=== PATIENT | female | born 1975 | race Caucasian/White ===

== ENCOUNTER 2017-03-17 17:25 | Inpatient (IN) ==
[2017-03-17] MEDS ORDERED: METOCLOPRAMIDE 10 MG/2 ML VIAL IV STA (18:19)
[2017-03-17] MEDS ORDERED: HYDROmorphone 2 MG/1 ML VIAL IV STA (18:19)
[2017-03-17] MEDS ORDERED: ONDANSETRON 4 MG/2 ML VIAL IV STA (18:19)
[2017-03-17] MEDS ORDERED: SODIUM CHLORIDE 0.9% 1,000 ML IV STA (18:19)
[2017-03-17] MEDS ORDERED: DICYCLOMINE 20 MG/2 ML AMP IM ONE ×2 (18:19→18:39)
--- NOTE | 2017-03-17 18:25 | Emergency Department Note ---
Arrival - Arrival Chief Complaint: Abdominal / Flank Pain Stated Complaint: lower back pain and stomach ache ED Nursing Triage Note: Pt states that after picking up something heavy yesterday that the known hernia that she has is moving in her stomach - pt states that she is out of her meds that she has not been able to go to the doctor - pt states that she did have this hernia repaired x 3 years ago Mode of Arrival: Ambulatory Limitations: No Limitations Source: Patient Time Seen by Provider: 03/17/17 18:19 - History of Present Illness HPI Narrative: This 41-year-old white female presents with 24 hours of nausea, vomiting, and diarrhea associated with severe abdominal cramps. During process of the interview she was in significant pain early on the gurney complaining of severe abdominal cramping. She describes this pain diffuse and gives the sensation of moving about. She has history both of a hernia repair 3 years ago of the umbilicus as well as a small bowel obstruction prior to that. She denies any chills or fever with this episode and presents in mild distress. Onset (ago): hour(s) (Patient presents 24 hours post onset of symptoms) Date of Last Menstrual Period: december 31 Allergies/Adverse Reactions: Allergies Allergy/AdvReac Type Severity Reaction Status Date / Time No Known Allergies Allergy Verified 10/16/14 11:26 Home Medications: Home Medications Medication Instructions Recorded Confirmed Type cloNIDine TAB [Catapres Tab] 0.1 mg PO BID #60 tablet 03/30/16 05/01/16 Rx metFORMIN [Glucophage] 500 mg PO BID W/MEALS #60 tablet 03/30/16 05/01/16 Rx Gabapentin 300 mg PO TID 05/01/16 05/01/16 History Ibuprofen Tab [Motrin Tab] 800 mg PO TID 05/01/16 05/01/16 History Loratadine Tab [Claritin Tab] 10 mg PO DAILY 05/01/16 05/01/16 History PARoxetine [Paxil] 20 mg PO DAILY 05/01/16 05/01/16 History guaiFENesin [Guaifenesin] 400 mg PO DAILY 05/01/16 05/01/16 History hydroCHLOROthiazide 50 mg PO DAILY 05/01/16 05/01/16 History [Hydrochlorothiazide] Acetaminophen Tab [Tylenol Tab] 325 mg PO Q4H PRN #0 tablet 05/02/16 Rx Albuterol Neb [Proventil Neb] 2.5 mg RESP TX RT Q6H PRN #0 05/02/16 Rx nebulization solution Chlorhexidine 0.12% Oral Rinse 15 ml SWISH/SPIT BID #10 bottle 05/02/16 Rx [Peridex] Clindamycin Cap [Cleocin Cap] 300 mg PO QID 10 Days 05/02/16 Rx HYDROcodone/ACETAMIN 5-325 [[place] 1 tablet PO Q4H PRN #20 tablet 05/02/16 Rx 5-325] Review of System - Review of System 12 point system: reviewed and no additional remarkable complaints except as stated - Review of System Constitutional: Present: as per HPI Gastrointestinal: Present: as per HPI Medical,Surgical,& Family Hx - Medical History Cardio: History of: CHF, Hypertension No history of: CAD Endocrine: History of: Diabetes Mellitus (IDDM) Respiratory: History of: Asthma Gastrointestinal: History of: Bowel Obstruction Reproductive: No history of: Ectopic , Complication Other: History of: Miscellaneous Medical Problems (prev wound dehisence) - Surgical History Thoracic Surgeries: Patient denies;: Organ Transplant Neurologic Surgeries: Patient denies: Neurologic Surgery HEENT Surgeries: Patient denies: Eye Surgery, Thyroid Surgery, Tonsilectomy & Adenoidectomy Abdominal Surgeries: Surgical HX of: Abdominal Surgery (hernia repair) Reproductive Surgeries: Surgical HX of;: Section, Tubal Ligation Patient denies;: Genitourinary Surgery - Family History Family History: Reports;: Family Cancer (colon- multiple family members), Family Diabetes, Family Heart Disease, Family Hypertension - Social History Smoking Status: Current every day smoker Frequency of Alcohol Use: None Type of Drug Use: None Exam Physical Examination: GENERAL: Morbidly obese white female groaning on the gurney. HEENT: Normocephalic. No trauma. Moist mucous membranes. EOMI. PERRLA. ENT NML NECK: Supple. No adenopathy. CARDIAC: Regular. No murmurs. Heart rate 100 CHEST: Clear to auscultation. No respiratory distress. O2 sat 98% ABDOMEN: Firm but nontender unless cramping present with hypoactive bowel sounds. EXTREMITIES: No trauma. Normal ROM. No pedal edema. SKIN: No diaphoresis. No rash. NEURO: Alert. Neuro intact no focal deficits. Vital Signs: Vital Signs Temperature 98.1 F 03/17/17 17:51 Pulse Rate 115 H 03/17/17 18:55 Respiratory Rate 20 03/17/17 18:55 Blood Pressure 119/73 03/17/17 18:55 O2 Sat by Pulse Oximetry 98 03/17/17 18:55 Course - Reevaluation(s) Reevaluation #1: Discussed with patient the fact that she had symptomatic gallstones as well as a urinary tract infection. - Consultations Consultation #1: Discussed with Dr. Ortiz who will admit the patient for further evaluation treatment. Results - Labs CBC & BMP: 03/17/17 18:38 03/17/17 18:38 Labs: I have reviewed the lab and noted the elevated blood sugar, lactic acid, and evidence of infected urine. - Diagnostic Findings Procedure: CT Abdomen and Pelvis: image reviewed by me, report reviewed by me ( Multiple gallstones and fatty liver) Disposition Clinical Impression: Cholelithiasis, Cystitis Case discussed with: patient, patient's family Disposition: Still a Patient Condition: Stable Time of Disposition: 22:17
[2017-03-17] MEDS ORDERED: METOCLOPRAMIDE 10 MG/2 ML VIAL ONE (18:38)
[2017-03-17] MEDS ORDERED: ONDANSETRON 4 MG/2 ML VIAL ONE (18:38)
[2017-03-17] MEDS ORDERED: HYDROmorphone 2 MG/1 ML VIAL ONE (18:39)
--- NOTE | 2017-03-17 18:48 | EKG Report ---
Stationary ECG Study [facility] ER Test Date: 03/17/2017 6:47:14 PM Pat Name: MIRANDA AGUDELO Department: Room: 344 Gender: F Car Mover: : 1975 Requested by: Malcom White Order Number: [id number] Reading MD: KEIRA BRUCE Intervals [place] Rate: 109 P: 56 NM: 115 QRS: 70 QRSD: 90 T: -7 QT: 312 QTc: 376 Interpretive Statements SINUS TACHYCARDIA WITH SHORT NM INTERVAL LOW QRS VOLTAGE IN PRECORDIAL LEADS ABNORMAL QRS-T ANGLE Electronically Signed On 03-18-17 11:20:39 CDT by KEIRA BRUCE [email or web address]
[2017-03-17 18:49] LABS: Basophils % 0.3 % (0.0-0.8); Eosinophils # 0.3 10*3/uL (0.0-0.87); Eosinophils % 2.2 % (0.00-10.9); Hematocrit 46.4 VOL% (35.7-47.0); Hemoglobin 15.6 GM/DL (12.0-16.0); Immature Granulocytes % 0.4 %; Immature Granulocytes Absolute 0.05 #; Lymphocytes # 2.8 10*3/uL (1.4-4.0); Lymphocytes % 24.1 % (21.3-54.2); Mean Corpuscular HGB Conc 33.6 GM/DL (32-36); Mean Corpuscular Hemoglobin 32 PG (27-34); Mean Corpuscular Volume 96.3 FL (87-102); Mean Platelet Volume 9.5 FL (9.6-12.0); Monocytes # 0.8 10*3/uL (0.11-0.8); Monocytes % 6.9 % (1.7-12.7); Neutrophils # 7.6 10*3/uL (1.4-7.4); Neutrophils % 66.1 % (38.7-73.9); Platelet Count 244 T/CUMM (130-400); Red Blood Count 4.82 MC/CUMM (3.8-5.5); White Blood Count 11.4 T/CUMM (4-12)
[2017-03-17 19:10] LABS: Alanine Aminotransferase 27 U/L (13-56); Albumin 3.2 G/DL (3.4-5.0); Alkaline Phosphatase 102 U/L (45-117); Amylase 108 U/L (25-115); Aspartate Amino Transferase 15 U/L (0-37); Bilirubin,Total < 0.39 MG/DL (0.2-1.0); Blood Urea Nitrogen 6 MG/DL (7-18); Calcium 9.4 MG/DL (8.5-10.1); Glucose 166 MG/DL (74-106); Lactic Acid 2.2 MMOL/L (0.4-2.0); Osmolality,Calculated 269.2 MOS/KG (273-304); Potassium 4.2 MMOL/L (3.5-5.1); Sodium 134 MMOL/L (136-145); Total Protein 7.1 G/DL (6.4-8.3); Troponin I Only < 0.015 NG/ML (0.00-0.045)
[2017-03-17 19:24] LABS: Apearance,Urine CLOUDY (Clear); Bacteria,Urine Many /HPF (Few); Bilirubin,Urine Negative (Negative); Blood, Urine Moderate mg/dL (Negative); Glucose,Urine (UA) Negative (Negative); Ketones,Urine Negative (Negative); Mucus,Urine Occasional /LPF (Occasional); Nitrite,Urine Negative (Negative); Protein,Urine 30 MG/DL; RBC,Urine 19 /HPF (0-4); Squamous Epithelial Cell,Urine Moderate /HPF (0-10); Urine Color Yellow (Yellow); Urine Specific Gravity 1.009 (1.001-1.035); Urine Urobilinogen < 2.0 EU/DL (0.2-1.0); WBC,Urine 43 /HPF (0-6)
[2017-03-17] MEDS ORDERED: LEVOFLOXACIN INJ 750 MG in PREMIX 1 EACH IV STA (19:39)
[2017-03-17] MEDS ORDERED: LEVOFLOXACIN INJ 150 ML IV ONE (19:46)
--- NOTE | 2017-03-17 20:46 | CT Report ---
CT of the abdomen and pelvis with intravenous contrast. Oral contrast was also administered. Axial images were obtained with sagittal and coronal reconstructions. 100 cc Omni 350. Indication: Abdominal pain. Distention. Comparison is made to a previous exam of November 27, 2012. The heart is normal in size. The lung bases are clear. The liver is enlarged with a length of 25.2 cm. There is marked fatty infiltration of the liver. No focal liver lesions are identified. There is no intrahepatic biliary ductal dilatation. There are multiple gallstones present, the largest one measures 2.5 cm. There is no biliary ductal dilatation. There is no splenic enlargement. There is no pancreatic enlargement. The pancreatic duct is not dilated. There is no adrenal enlargement. The kidneys are normal in size, location, and contour, without hydronephrosis. There are multiple hypodensities within the kidneys which have increased in size since the 2012 exam. Note that these cannot be completely characterized due to decreased resolution due to the patient's body habitus. There is no free air or free fluid present within the peritoneal cavity. The stomach is not dilated. The small intestine is not dilated. There is no evidence of small bowel obstruction. The terminal ileum presents a normal appearance. The appendix presents a normal appearance. The colon is not dilated. There is no colonic wall thickening. There is an umbilical hernia which contains fat. Postsurgical changes noted at the lower abdominal wall. There is a small amount of air within the urinary bladder. The urinary bladder wall is not thickened. There is a small amount of calcification within the left ovary. The uterus is normal in size. The ovaries are normal in size. There is no free air present within the peritoneal cavity. There is no free fluid present within the peritoneal cavity. The osseous structures are unremarkable. Impression: 1. Very enlarged there is fatty liver. 2. Multiple renal hypodensities which have increased in size. Because of the decreased resolution of this exam because of the body habitus, these cannot be further characterized. 3. Cholelithiasis including a 2.5 cm stone. 4. No evidence of small bowel obstruction. 5. Umbilical hernia containing only fat. 6. Nonspecific calcification involving the left ovary. 7. Air in the urinary bladder. The patient has not been recently catheterized, infection or fistula must be considered. The CT exam was performed using one or more of the following dose reduction techniques: Automated exposure control, adjustment of the mA and/or kV according to patient size, or use of iterative reconstruction technique. PROCEDURE INTERPRETED AT [facility] DEPARTMENT OF RADIOLOGY Final Report Signed by: Dr. Larissa Manuel
[2017-03-17] MEDS ORDERED: DEXTROSE 50% 25 GM/50 ML SYRINGE IV PRN (22:20)
[2017-03-17] MEDS ORDERED: hydrALAZINE 20 MG/1 ML VIAL IV PRN (22:20)
[2017-03-17] MEDS ORDERED: GLUCAGON 1 MG VIAL IM PRN (22:20)
[2017-03-17] MEDS ORDERED: ONDANSETRON 4 MG/2 ML VIAL IV PRN (22:20)
[2017-03-18] MEDS: LACTATED RINGERS 1,000 ML IV SCH ×3 (00:14→23:16)
[2017-03-18] MEDS: INSULIN REGULAR 100 UNIT/ML SUBCUT SCH ×4 (01:17→18:32)
[2017-03-18] MEDS: HYDROmorphone 2 MG/1 ML VIAL IV PRN ×3 (01:21→17:14)
--- NOTE | 2017-03-18 08:57 | EKG Report ---
Stationary ECG Study [facility] Test Date: 03/18/2017 8:56:35 AM Pat Name: MIRANDA AGUDELO Department: Room: 344 Gender: F Camp Manager: NEISHA : 1975 Requested by: Malcom White Order Number: [id number] Jean Carlos MD: KEIRA BRUCE Intervals [place] Rate: 92 P: 69 VT: 128 QRS: 72 QRSD: 90 T: 37 QT: 338 QTc: 387 Interpretive Statements SINUS RHYTHM Electronically Signed On 03-18-17 11:23:10 CDT by KEIRA BRUCE [email or web address]
--- NOTE | 2017-03-18 11:38 | General Surg History&Physical ---
Assessment and Plan (1) Urinary tract infection Status: Acute Assessment and plan: I believe this is the cause of the patient's abdominal pain. We will treat this with antibiotics. The air in the bladder is from recent instrumentation per the patient. We will continue to follow her clinically and her response to her treatment of urinary tract infection Current Visit: Yes (2) Umbilical hernia Status: Acute Assessment and plan: I believe this could also be contributing to the patient's pain. She had a recent large hernia repair with mesh and this is an incisional umbilical hernia. It is only containing fat and I would not recommend intervening on the right now. Current Visit: Yes (3) Cholelithiasis Status: Acute Assessment and plan: I believe this is asymptomatic right now. No intervention needed Current Visit: Yes History of Present Illness Chief complaint: Abdominal pain History of present illness: Ms. Barth is a 41 year old female who is admitted to the hospital with abdominal pain thought to be cholelithiasis by the ER physician yesterday. What she really describes as suprapubic and right and left lower quadrant pain is worse with activity. No postprandial component. Her LFTs are normal and there is no evidence secondarily of inflammation in her gallbladder on her imaging including CT scan. There is some air in her bladder. She does have evidence of urinary tract infection. Home Medications Medication Instructions Recorded Confirmed Type cloNIDine TAB [Catapres Tab] 0.1 mg PO BID #60 tablet 03/30/16 05/01/16 Rx Gabapentin 300 mg PO TID 05/01/16 05/01/16 History Ibuprofen Tab [Motrin Tab] 800 mg PO TID 05/01/16 05/01/16 History Loratadine Tab [Claritin Tab] 10 mg PO DAILY 05/01/16 05/01/16 History PARoxetine [Paxil] 20 mg PO DAILY 05/01/16 05/01/16 History guaiFENesin [Guaifenesin] 400 mg PO DAILY 05/01/16 05/01/16 History hydroCHLOROthiazide 50 mg PO DAILY 05/01/16 05/01/16 History [Hydrochlorothiazide] Acetaminophen Tab [Tylenol Tab] 325 mg PO Q4H PRN #0 tablet 05/02/16 Rx Albuterol Neb [Proventil Neb] 2.5 mg RESP TX RT Q6H PRN #0 05/02/16 Rx nebulization solution Chlorhexidine 0.12% Oral Rinse 15 ml SWISH/SPIT BID #10 bottle 05/02/16 Rx [Peridex] Clindamycin Cap [Cleocin Cap] 300 mg PO QID 10 Days 05/02/16 Rx HYDROcodone/ACETAMIN 5-325 [[place] 1 tablet PO Q4H PRN #20 tablet 05/02/16 Rx 5-325] metFORMIN [Glucophage] 1,000 mg PO BID W/MEALS 03/18/17 03/18/17 History Allergies Allergy/AdvReac Type Severity Reaction Status Date / Time No Known Allergies Allergy Verified 10/16/14 11:26 Medical,Surgical,& Family Hx - Medical History Cardio: History of: CHF, Hypertension No history of: CAD Psychological: History of: Depression Endocrine: History of: Diabetes Mellitus (IDDM), Diabetes Mellitus (NIDDM) Respiratory: History of: Asthma Gastrointestinal: History of: Bowel Obstruction Musculoskeletal: History of: Back/Neck Problems (back problems) Hematology: History of: Bleeding Problems (history of "brain bleed") Reproductive: No history of: Ectopic , Complication Other: History of: Miscellaneous Medical Problems (prev wound dehisence) - Surgical History Thoracic Surgeries: Patient denies;: Organ Transplant Neurologic Surgeries: Patient denies: Neurologic Surgery HEENT Surgeries: Surgical HX of: Tonsilectomy & Adenoidectomy (tonsilectomy) Patient denies: Eye Surgery, Thyroid Surgery Abdominal Surgeries: Surgical HX of: Abdominal Surgery (hernia repair with mesh) Reproductive Surgeries: Surgical HX of;: Section, Tubal Ligation Patient denies;: Genitourinary Surgery - Family History Family History: Reports;: Family Cancer (colon- multiple family members), Family Diabetes, Family Heart Disease (multiple family members), Family Hypertension, Family Psychiatric Problems (brother, father, grandfather) - Social History Smoking Status: Current every day smoker Frequency of Alcohol Use: None Type of Drug Use: None Exam - Constitutional Vitals: Period Temp Pulse Resp BP Sys/Banerjee Pulse Ox Last 24 Hr 97.3 F-98.7 F 102-115 18-20 118-153/60-97 92-98 General appearance: no acute distress, morbidly obese - Head Head exam: Present: normal inspection, normocephalic - Eye Eye exam: Present: EOMI Pupils: Present: WILFREDO - ENT ENT exam: Present: normal exam Mouth exam: Present: normal external inspection, normal voice - Neck Neck exam: Present: normal inspection, trachea midline - Respiratory Respiratory exam: Present: clear to auscultation bilaterally. Absent: accessory muscle use, chest wall tenderness - Cardiovascular Cardiovascular exam: Present: RRR. Absent: systolic murmur, tachycardia - GI/Abdominal GI/Abdominal exam: Present: tenderness (There is tenderness over the bellybutton and suprapubic region but no peritoneal signs.), soft. Absent: rebound - Extremities Exam Extremities exam: Present: normal inspection, normal capillary refill - Back Exam Back exam: Present: normal inspection - Neurological Exam Neurological exam: Present: alert, oriented X3 Speech: Present: normal - Skin Skin exam: Present: normal color, warm - Constitutional Constitutional: Present: as per HPI - EENT Nose, mouth and throat: Present: as per HPI - Cardiovascular Cardiovascular: Present: as per HPI - Respiratory Respiratory: Present: as per HPI - Gastrointestinal Gastrointestinal: Present: as per HPI - Genitourinary Genitourinary: Present: as per HPI - Musculoskeletal Musculoskeletal: Present: as per HPI - Neurological Neurological: Present: as per HPI - Endocrine Endocrine: Present: as per HPI Hematologic/Lymphatic: Present: as per HPI Results - Labs CBC & BMP: 03/17/17 18:38 03/17/17 18:38 - Diagnostic Findings Procedure: CT Abdomen and Pelvis: image reviewed by me, report reviewed by me ( Gallstones in the gallbladder. Some air in the urinary bladder.)
[2017-03-18] MEDS: metroNIDAZOLE INJ 500 MG in PREMIX 1 EACH IV SCH ×2 (12:23→20:27)
[2017-03-18] MEDS: CIPROFLOXACIN INJ 400 MG in PREMIX 1 EACH IV SCH (14:18)
[2017-03-18] MEDS ORDERED: LEVOFLOXACIN INJ 750 MG in PREMIX 1 EACH IV SCH (19:30)
[2017-03-18] MEDS ORDERED: KETOROLAC 30 MG/1 ML VIAL IV PRN (20:53)
[2017-03-19] MEDS: CIPROFLOXACIN INJ 400 MG in PREMIX 1 EACH IV SCH (00:57)
[2017-03-19] MEDS: LACTATED RINGERS 1,000 ML IV SCH ×2 (01:03→04:55)
[2017-03-19] MEDS: INSULIN REGULAR 100 UNIT/ML SUBCUT SCH ×3 (01:04→11:08)
[2017-03-19] MEDS: metroNIDAZOLE INJ 500 MG in PREMIX 1 EACH IV SCH (03:23)
[2017-03-19 08:06] VITALS: BP 144/71
--- NOTE | 2017-03-19 11:27 | Discharge Summary ---
Hospital Course - Hospital Course Hospital Course: This patient was admitted with suprapubic abdominal pain and gallstones on imaging. She was found to have a urinary tract infection that explain all of her symptoms and she was treated for this and improved significantly. She was discharged home with follow-up as needed. He did have a umbilical hernia as well but I do not believe now that we know she has urinary tract infection but that is necessarily symptomatic and she was given warning signs regarding symptoms for this if they occur I would be happy to discuss treatment of this with her further but given she has had multiple repairs and is morbidly obese I would leave this alone since only contains fat unless it becomes excruciatingly painful. This was discussed in detail with patient. In addition, there was some air in the urinary bladder on the initial CT scan but no evidence of emphysematous cystitis. This is thought to be incidental finding and the patient responded promptly to antibiotics and did not appear to require further inpatient treatment or workup of this acutely. Diagnosis - Discharge Diagnosis (1) Urinary tract infection Status: Acute (2) Umbilical hernia Status: Acute (3) Cholelithiasis Status: Acute Discharge Plan - Discharge Data Disposition: Disch To Home/Self Care Condition at Discharge: Stable Discharge Diet: advance to your usual diet Activity: resume usual activities as tolerated Hygiene: may shower Weight Bearing at Discharge: weight bear as tolerated Driving: no restrictions Contact your physician if you experience:: fever over 101, Difficulty voiding, Redness or swelling, Nausea/Vomiting, Shortness of breath, Bleeding, pain uncontrolled by pain medications - Discharge Medications New Nitrofurantoin Macro/Hale [Macrobid] 100 mg PO Q12H #14 capsule Continue cloNIDine TAB [Catapres Tab] 0.1 mg PO BID #60 tablet PARoxetine [Paxil] 20 mg PO DAILY Gabapentin 300 mg PO TID Albuterol Neb [Proventil Neb] 2.5 mg RESP TX RT Q6H PRN #0 nebulization solution PRN Reason: Shortness Of Breath/Wheezing HYDROcodone/ACETAMIN 5-325 [[place] 5-325] 1 tablet PO Q4H PRN #20 tablet PRN Reason: Pain Mild (1-3) metFORMIN [Glucophage] 1,000 mg PO BID W/MEALS - Follow Up or Referral - Forms/Instructions Exam - Constitutional Vitals: Period Temp Pulse Resp BP Sys/Banerjee Pulse Ox Last 24 Hr 97.6 F-99.3 F 76-102 19-22 118-150/57-87 94-96 General appearance: no acute distress, morbidly obese - Head Head exam: Present: normal inspection, normocephalic - Eye Eye exam: Present: EOMI - ENT ENT exam: Present: normal exam - Neck Neck exam: Present: normal inspection - Respiratory Respiratory exam: Present: clear to auscultation bilaterally. Absent: accessory muscle use, chest wall tenderness - Cardiovascular Cardiovascular exam: Present: regular rate and rhythm. Absent: systolic murmur , tachycardia - GI/Abdominal GI/Abdominal exam: Present: soft. Absent: tenderness, rebound - Extremities Exam Extremities exam: Present: normal inspection, normal capillary refill - Back Exam Back exam: Present: normal inspection - Neurological Exam Neurological exam: Present: alert, oriented X3 - Psychiatric Psychiatric exam: Present: normal affect, normal mood - Skin Skin exam: Present: normal color, warm Discharge Results Procedures and tests throughout hospitalization: Pending Orders 03/17/17 18:38 Blood Culture Stat Labs on day of discharge: Labs from last 24 hours 03/19/17 03/19/17 03/19/17 10:32 06:38 00:07 POC Glucose 243 H 195 H 235 H 03/18/17 03/18/17 17:14 12:13 POC Glucose 189 H 245 H Preliminary micro results at discharge 03/17/17 18:38 Blood Culture - Preliminary Blood No growth at 1 day 03/17/17 18:38 Blood Culture - Preliminary Blood No growth at 1 day DS: Provider Date of admission: 03/17/17 22:19 Primary care physician: . No PCP Attending physician on admission: Doron Ortiz MD Discharging clinician: Doron Ortiz MD Expected date of discharge: 03/19/17
== END 2017-03-19 12:20 | disposition home or self-care (01) | DRG 690 ==
LOC: N.ED 17:25 → N.EDINP 22:19 → N.3E 23:29
PROVIDERS: ADMIT Surgery; ATTEND Surgery

== ENCOUNTER 2017-05-09 08:57 | Inpatient (IN) ==
[2017-05-09] MEDS ORDERED: ONDANSETRON 4 MG/2 ML VIAL ONE (10:42)
[2017-05-09] MEDS ORDERED: HYDROmorphone 2 MG/1 ML VIAL ONE (10:42)
[2017-05-09] MEDS ORDERED: KETOROLAC 30 MG/1 ML VIAL ONE (10:42)
[2017-05-09 10:47] LABS: Apearance,Urine CLOUDY (Clear); Bacteria,Urine Moderate /HPF (Few); Bilirubin,Urine Negative (Negative); Blood, Urine Moderate mg/dL (Negative); Glucose,Urine (UA) 50 mg/dL (Negative); Ketones,Urine Negative (Negative); Mucus,Urine Occasional /LPF (Occasional); Nitrite,Urine Negative (Negative); Protein,Urine 100 MG/DL; RBC,Urine 71 /HPF (0-4); Squamous Epithelial Cell,Urine Occasional /HPF (0-10); Urine Urobilinogen < 2.0 EU/DL (0.2-1.0); WBC,Urine 112 /HPF (0-6)
[2017-05-09 10:50] LABS: Urine Color Amber (Yellow)
[2017-05-09] MEDS ORDERED: cefTRIAXone 1,000 MG in SODIUM CHLORIDE 0.9% 100 ML IV STA (11:16)
[2017-05-09 11:32] LABS: Basophils # 0.1 10*3/uL (0.0-0.2); Basophils % 0.5 % (0.0-0.8); Eosinophils % 0.1 % (0.00-10.9); Hematocrit 47.1 VOL% (35.7-47.0); Hemoglobin 15.9 GM/DL (12.0-16.0); Immature Granulocytes % 1.3 %; Immature Granulocytes Absolute 0.23 #; Lymphocytes # 0.8 10*3/uL (1.4-4.0); Lymphocytes % 4.2 % (21.3-54.2); Mean Corpuscular HGB Conc 33.8 GM/DL (32-36); Mean Corpuscular Hemoglobin 32 PG (27-34); Mean Platelet Volume 10.6 FL (9.6-12.0); Monocytes # 0.7 10*3/uL (0.11-0.8); Monocytes % 3.8 % (1.7-12.7); Neutrophils # 16.5 10*3/uL (1.4-7.4); Neutrophils % 90.1 % (38.7-73.9); Platelet Count 268 T/CUMM (130-400); Red Blood Count 4.96 MC/CUMM (3.8-5.5); Red Cell Distribution Width 14.1 % (9.3-17.3); White Blood Count 18.3 T/CUMM (4-12)
[2017-05-09] MEDS ORDERED: SODIUM CHLORIDE 0.9% 0 ML IV ONE (12:02)
[2017-05-09 12:19] LABS: Band Neutrophils 10 % (0-10); Hypochromasia 1+; Lymphocytes 4 % (20-55); Platelet Estimate Adequate; Segmented Neutrophils 82 % (50-85); Total Cells Counted 100
[2017-05-09] MEDS ORDERED: DEXTROSE 50% 25 GM/50 ML VIAL IV PRN (12:21)
[2017-05-09] MEDS ORDERED: GLUCAGON 1 MG VIAL IM PRN (12:21)
[2017-05-09 12:28] LABS: Albumin 2.9 G/DL (3.4-5.0); Bilirubin,Total 1.2 MG/DL (0.2-1.0); Calcium 9.4 MG/DL (8.5-10.1); Osmolality,Calculated 272.4 MOS/KG (273-304); Potassium 3.8 MMOL/L (3.5-5.1); Total Protein 7.1 G/DL (6.4-8.3)
[2017-05-09] MEDS ORDERED: cefTRIAXone 1,000 MG in SYRINGE 1 EACH IV SCH (12:30)
[2017-05-09] MEDS ORDERED: cefTRIAXone 1,000 MG VIAL ONE (13:18)
[2017-05-09] MEDS ORDERED: PROMETHAZINE 25 MG/1 ML VIAL IM PRN (15:38)
[2017-05-09] MEDS: ONDANSETRON 4 MG/2 ML VIAL IV PRN (17:10)
[2017-05-09] MEDS: INSULIN LISPRO 100 UNIT/ML SUBCUT SCH (17:17)
[2017-05-10] MEDS: ONDANSETRON 4 MG/2 ML VIAL IV PRN (00:23)
[2017-05-10] MEDS: INSULIN LISPRO 100 UNIT/ML SUBCUT SCH ×5 (06:58→22:13)
[2017-05-10 07:58] LABS: Basophils % 0.3 % (0.0-0.8); Eosinophils % 0.2 % (0.00-10.9); Hematocrit 38.9 VOL% (35.7-47.0); Immature Granulocytes % 1.2 %; Immature Granulocytes Absolute 0.12 #; Lymphocytes # 0.7 10*3/uL (1.4-4.0); Lymphocytes % 6.7 % (21.3-54.2); Mean Corpuscular HGB Conc 33.7 GM/DL (32-36); Mean Corpuscular Hemoglobin 32 PG (27-34); Mean Corpuscular Volume 95.3 FL (87-102); Monocytes # 0.5 10*3/uL (0.11-0.8); Neutrophils # 8.6 10*3/uL (1.4-7.4); Neutrophils % 86.6 % (38.7-73.9); Red Blood Count 4.08 MC/CUMM (3.8-5.5); Red Cell Distribution Width 14.1 % (9.3-17.3)
[2017-05-10 08:28] LABS: Hemoglobin 13.1 GM/DL (12.0-16.0); Platelet Count 157 T/CUMM (130-400); White Blood Count 9.9 T/CUMM (4-12)
[2017-05-10 08:34] LABS: Calcium 8.1 MG/DL (8.5-10.1); Potassium 3.6 MMOL/L (3.5-5.1)
[2017-05-10 08:44] LABS: Band Neutrophils 10 % (0-10); Hypochromasia 1+; Lymphocytes 4 % (20-55); Segmented Neutrophils 78 % (50-85); Total Cells Counted 100
[2017-05-10 08:45] LABS: Microcytosis 1+; Platelet Estimate Adequate
[2017-05-10] MEDS: cefTRIAXone 1,000 MG in SYRINGE 1 EACH IV SCH (09:31)
[2017-05-10] MEDS ORDERED: ALBUTEROL 2.5 MG/3 ML NEB RESP TX PRN (10:36)
[2017-05-10] MEDS ORDERED: MAGNESIUM SULF RIDER 4 GM in PREMIX 1 EACH IV ONE (11:30)
[2017-05-10] MEDS ORDERED: SODIUM CHLORIDE 0.9% 1,000 ML IV ONE (14:00)
[2017-05-10] MEDS: GABAPENTIN 300 MG CAPSULE PO SCH ×2 (16:40→22:14)
[2017-05-10] MEDS: SODIUM CHLORIDE 0.9% 1,000 ML IV SCH (17:00)
[2017-05-10] MEDS: cloNIDine 0.1 MG TABLET PO SCH (22:12)
[2017-05-10] MEDS: PARoxetine 20 MG TABLET PO SCH (22:14)
[2017-05-10] MEDS: ACETAMINOPHEN 325 MG TABLET PO PRN (22:25)
[2017-05-11] MEDS: SODIUM CHLORIDE 0.9% 1,000 ML IV SCH ×3 (02:36→17:58)
[2017-05-11] MEDS: cefTRIAXone 1,000 MG in SYRINGE 1 EACH IV SCH (09:18)
[2017-05-11] MEDS: cloNIDine 0.1 MG TABLET PO SCH ×2 (09:19→20:45)
[2017-05-11] MEDS: GABAPENTIN 300 MG CAPSULE PO SCH ×3 (09:20→20:45)
[2017-05-11] MEDS: INSULIN LISPRO 100 UNIT/ML SUBCUT SCH ×4 (09:21→21:33)
[2017-05-11] MEDS: ERTAPENEM 1,000 MG in SODIUM CHLORIDE 0.9% 100 ML IV SCH (13:47)
[2017-05-11] MEDS: PARoxetine 20 MG TABLET PO SCH (20:45)
[2017-05-11] MEDS: ACETAMINOPHEN 325 MG TABLET PO PRN (20:47)
[2017-05-12] MEDS: SODIUM CHLORIDE 0.9% 1,000 ML IV SCH ×2 (01:35→13:06)
[2017-05-12 04:48] LABS: Basophils % 0.3 % (0.0-0.8); Eosinophils # 0.3 10*3/uL (0.0-0.87); Eosinophils % 3.6 % (0.00-10.9); Hematocrit 36.8 VOL% (35.7-47.0); Hemoglobin 12.3 GM/DL (12.0-16.0); Immature Granulocytes % 0.7 %; Immature Granulocytes Absolute 0.05 #; Lymphocytes # 1.3 10*3/uL (1.4-4.0); Mean Corpuscular HGB Conc 33.4 GM/DL (32-36); Mean Corpuscular Hemoglobin 32 PG (27-34); Mean Corpuscular Volume 96.6 FL (87-102); Monocytes # 0.6 10*3/uL (0.11-0.8); Neutrophils # 4.7 10*3/uL (1.4-7.4); Neutrophils % 68.4 % (38.7-73.9); Platelet Count 135 T/CUMM (130-400); Red Blood Count 3.81 MC/CUMM (3.8-5.5); Red Cell Distribution Width 14.2 % (9.3-17.3); White Blood Count 6.9 T/CUMM (4-12)
[2017-05-12 05:22] LABS: Calcium 8.4 MG/DL (8.5-10.1); Magnesium 1.9 MG/DL (1.8-2.4); Osmolality,Calculated 281.4 MOS/KG (273-304); Potassium 3.6 MMOL/L (3.5-5.1)
[2017-05-12 05:35] LABS: Eosinophils 2 % (0-10); Lymphocytes 28 % (20-55); Nucleated Red Blood Cells 1 (0-5); Platelet Estimate Normal; Segmented Neutrophils 65 % (50-85); Total Cells Counted 100
[2017-05-12] MEDS ORDERED: ALBUTEROL/IPRATROPIUM 3 ML NEB RESP TX ONE ×3 (08:38→16:24)
[2017-05-12] MEDS: ERTAPENEM 1,000 MG in SODIUM CHLORIDE 0.9% 100 ML IV SCH (09:06)
[2017-05-12] MEDS: INSULIN LISPRO 100 UNIT/ML SUBCUT SCH ×4 (09:09→22:22)
[2017-05-12] MEDS: cloNIDine 0.1 MG TABLET PO SCH ×2 (09:12→22:26)
[2017-05-12] MEDS: NYSTATIN 500,000 UNIT/5 ML UDCUP SWISH/SWAL SCH ×4 (09:12→22:23)
[2017-05-12] MEDS: GABAPENTIN 300 MG CAPSULE PO SCH ×3 (09:12→22:26)
[2017-05-12] MEDS ORDERED: CITRIC ACID/SODIUM CITRATE 30 ML UDCUP PO ONE (12:49)
[2017-05-12] MEDS ORDERED: GENTAMICIN INJ 160 MG in SODIUM CHLORIDE 0.9% 100 ML IV ONE (14:00)
[2017-05-12] MEDS ORDERED: ACETAMINOPHEN 1,000 MG/100 ML VIAL IV ONE (14:49)
[2017-05-12] MEDS ORDERED: GABAPENTIN 400 MG CAPSULE ONE (14:50)
[2017-05-12] MEDS ORDERED: PANTOPRAZOLE 40 MG VIAL IV ONE ×2 (14:54→15:06)
[2017-05-12] MEDS ORDERED: GABAPENTIN 400 MG CAPSULE PO ONE (14:58)
[2017-05-12] MEDS ORDERED: ACETAMINOPHEN INJ 1,000 MG in PREMIX 1 EACH IV ONE (15:06)
[2017-05-12] MEDS ORDERED: ONDANSETRON 4 MG/2 ML VIAL ONE (16:44)
[2017-05-12] MEDS ORDERED: SEVOFLURANE 1 UNIT/15 MINUTE INH ONE (16:44)
[2017-05-12] MEDS ORDERED: MIDAZOLAM 2 MG/2 ML VIAL ONE (16:44)
[2017-05-12] MEDS ORDERED: PROPOFOL 200 MG/20 ML VIAL IV ONE (16:44)
[2017-05-12] MEDS ORDERED: fentaNYL 100 MCG/2 ML VIAL ONE (16:44)
[2017-05-12] MEDS ORDERED: GLYCOPYRROLATE 0.4 MG/2 ML VIAL ONE (16:44)
[2017-05-12] MEDS ORDERED: ROCURONIUM 100 MG/10 ML VIAL IV ONE (16:45)
[2017-05-12] MEDS ORDERED: NEOSTIGMINE 10 MG/10 ML VIAL ONE (16:45)
[2017-05-12] MEDS ORDERED: SUCCINYLCHOLINE 200 MG/10 ML VIAL ONE (16:45)
[2017-05-12] MEDS ORDERED: TAMSULOSIN 0.4 MG CAPSULE PO SCH (21:00)
[2017-05-12] MEDS: PARoxetine 20 MG TABLET PO SCH (22:26)
[2017-05-13 05:27] LABS: Basophils % 0.4 % (0.0-0.8); Eosinophils % 0.2 % (0.00-10.9); Hematocrit 38.3 VOL% (35.7-47.0); Hemoglobin 12.5 GM/DL (12.0-16.0); Immature Granulocytes % 1.3 %; Immature Granulocytes Absolute 0.07 #; Lymphocytes % 19.3 % (21.3-54.2); Mean Corpuscular HGB Conc 32.6 GM/DL (32-36); Mean Corpuscular Hemoglobin 31 PG (27-34); Mean Corpuscular Volume 96.2 FL (87-102); Mean Platelet Volume 10.7 FL (9.6-12.0); Monocytes # 0.4 10*3/uL (0.11-0.8); Monocytes % 6.5 % (1.7-12.7); Neutrophils # 3.9 10*3/uL (1.4-7.4); Neutrophils % 72.3 % (38.7-73.9); Platelet Count 182 T/CUMM (130-400); Red Blood Count 3.98 MC/CUMM (3.8-5.5); Red Cell Distribution Width 14.2 % (9.3-17.3); White Blood Count 5.4 T/CUMM (4-12)
[2017-05-13] MEDS: SODIUM CHLORIDE 0.9% 1,000 ML IV SCH ×3 (05:29→11:17)
[2017-05-13 05:47] LABS: Calcium 8.9 MG/DL (8.5-10.1); Magnesium 1.9 MG/DL (1.8-2.4)
[2017-05-13 05:48] LABS: Osmolality,Calculated 288.1 MOS/KG (273-304); Potassium 3.7 MMOL/L (3.5-5.1)
[2017-05-13] MEDS ORDERED: GLUCAGON 1 MG VIAL IM PRN (09:29)
[2017-05-13] MEDS ORDERED: DEXTROSE 50% 25 GM/50 ML VIAL IV PRN (09:29)
[2017-05-13] MEDS: INSULIN LISPRO 100 UNIT/ML SUBCUT SCH ×2 (11:12→13:17)
[2017-05-13] MEDS: NYSTATIN 500,000 UNIT/5 ML UDCUP SWISH/SWAL SCH ×2 (11:14→13:45)
[2017-05-13] MEDS: GABAPENTIN 300 MG CAPSULE PO SCH (11:15)
[2017-05-13] MEDS: cloNIDine 0.1 MG TABLET PO SCH (11:15)
[2017-05-13 11:57] VITALS: BP 127/73
[2017-05-13] MEDS ORDERED: NICOTINE 21 MG/24 HR PATCH TRANSDERM SCH (13:00)
[2017-05-14] MEDS ORDERED: ERTAPENEM 1,000 MG in SODIUM CHLORIDE 0.9% 50 ML IV SCH (09:00)
== END 2017-05-13 13:55 | disposition home or self-care (01) | DRG 872 ==
LOC: N.ED 09:14 → SUATTDRO 11:52 → N.EDINP 11:52 → N.2E 15:29
PROVIDERS: ADMIT Internal Medicine; ATTEND Internal Medicine Nephrology

== ENCOUNTER 2017-06-08 13:31 | Inpatient (IN) ==
[2017-06-08] MEDS ORDERED: GLUCAGON 1 MG VIAL IM PRN (15:01)
[2017-06-08] MEDS ORDERED: DEXTROSE 50% 25 GM/50 ML VIAL IV PRN (15:01)
[2017-06-08] MEDS ORDERED: ONDANSETRON 4 MG/2 ML VIAL IV PRN (15:03)
[2017-06-08] MEDS ORDERED: ALBUTEROL 1.25 MG/3 ML NEB RESP TX PRN (15:03)
[2017-06-08] MEDS ORDERED: diphenhydrAMINE 50 MG/1 ML VIAL IV PRN (15:04)
[2017-06-08] MEDS ORDERED: ALBUTEROL 2.5 MG/3 ML NEB RESP TX PRN (15:08)
[2017-06-08 15:28] LABS: Basophils # 0.1 10*3/uL (0.0-0.2); Basophils % 0.5 % (0.0-0.8); Eosinophils # 0.3 10*3/uL (0.0-0.87); Eosinophils % 2.9 % (0.00-10.9); Hematocrit 39.8 VOL% (35.7-47.0); Hemoglobin 13.4 GM/DL (12.0-16.0); Immature Granulocytes % 0.8 %; Immature Granulocytes Absolute 0.09 #; Lymphocytes # 3.3 10*3/uL (1.4-4.0); Lymphocytes % 29.8 % (21.3-54.2); Mean Corpuscular HGB Conc 33.7 GM/DL (32-36); Mean Corpuscular Hemoglobin 32 PG (27-34); Mean Corpuscular Volume 94.8 FL (87-102); Mean Platelet Volume 9.6 FL (9.6-12.0); Monocytes # 0.5 10*3/uL (0.11-0.8); Monocytes % 4.2 % (1.7-12.7); Neutrophils # 6.8 10*3/uL (1.4-7.4); Neutrophils % 61.8 % (38.7-73.9); Platelet Count 371 T/CUMM (130-400); Red Cell Distribution Width 14.3 % (9.3-17.3)
[2017-06-08 15:49] LABS: Osmolality,Calculated 278.7 MOS/KG (273-304)
[2017-06-08] MEDS: MEROPENEM 1,000 MG in SYRINGE 1 EACH IV SCH (16:57)
[2017-06-08] MEDS: FLUCONAZOLE 200 MG TABLET PO SCH (16:58)
[2017-06-08] MEDS: metFORMIN 500 MG TABLET PO SCH (16:58)
[2017-06-08] MEDS: INSULIN REGULAR 100 UNIT/ML SUBCUT SCH ×2 (16:59→23:22)
[2017-06-08] MEDS: GABAPENTIN 300 MG CAPSULE PO SCH (23:15)
[2017-06-08] MEDS: cloNIDine 0.1 MG TABLET PO SCH (23:15)
[2017-06-08] MEDS: PARoxetine 20 MG TABLET PO SCH (23:15)
[2017-06-08] MEDS: TAMSULOSIN 0.4 MG CAPSULE PO SCH (23:15)
[2017-06-08] MEDS: SODIUM CHLORIDE 0.9% 1,000 ML IV SCH (23:23)
[2017-06-09] MEDS: MEROPENEM 1,000 MG in SYRINGE 1 EACH IV SCH (01:02)
[2017-06-09] MEDS ORDERED: DIAZEPAM 5 MG TABLET PO ONE (06:30)
[2017-06-09] MEDS ORDERED: FAMOTIDINE 20 MG/2 ML VIAL IV ONE (07:00)
[2017-06-09] MEDS: INSULIN REGULAR 100 UNIT/ML SUBCUT SCH ×4 (08:51→20:39)
[2017-06-09] MEDS: cloNIDine 0.1 MG TABLET PO SCH ×2 (09:11→20:38)
[2017-06-09] MEDS: FLUCONAZOLE 200 MG TABLET PO SCH ×2 (09:11→15:53)
[2017-06-09] MEDS: metFORMIN 500 MG TABLET PO SCH ×2 (09:11→16:42)
[2017-06-09] MEDS: GABAPENTIN 300 MG CAPSULE PO SCH ×3 (09:12→20:38)
[2017-06-09] MEDS ORDERED: ALBUTEROL/IPRATROPIUM 3 ML NEB RESP TX STA (10:21)
[2017-06-09] MEDS ORDERED: MEROPENEM 1,000 MG in SODIUM CHLORIDE 0.9% 100 ML IV SCH (13:00)
[2017-06-09] MEDS ORDERED: KETOROLAC 30 MG/1 ML VIAL ONE (13:34)
[2017-06-09] MEDS ORDERED: fentaNYL 100 MCG/2 ML VIAL ONE ×2 (13:34→13:39)
[2017-06-09] MEDS ORDERED: MIDAZOLAM 2 MG/2 ML VIAL ONE (13:34)
[2017-06-09] MEDS ORDERED: DESFLURANE 1 UNIT/15 MINUTE INH ONE (13:34)
[2017-06-09] MEDS ORDERED: ONDANSETRON 4 MG/2 ML VIAL ONE (13:34)
[2017-06-09] MEDS ORDERED: PROPOFOL 200 MG/20 ML VIAL IV ONE (13:34)
[2017-06-09] MEDS ORDERED: SUCCINYLCHOLINE 200 MG/10 ML VIAL ONE (13:35)
[2017-06-09] MEDS: ERTAPENEM 1,000 MG in SODIUM CHLORIDE 0.9% 50 ML IV SCH (13:47)
[2017-06-09] MEDS: SODIUM CHLORIDE 0.9% 1,000 ML IV SCH ×2 (15:54→21:40)
[2017-06-09] MEDS ORDERED: MORPHINE 2 MG/1 ML SYRINGE IV PRN (18:44)
[2017-06-09] MEDS: MORPHINE 2 MG/1 ML SYRINGE IV PRN (19:29)
[2017-06-09] MEDS: TAMSULOSIN 0.4 MG CAPSULE PO SCH (20:38)
[2017-06-09] MEDS: PARoxetine 20 MG TABLET PO SCH (20:38)
[2017-06-10] MEDS: INSULIN REGULAR 100 UNIT/ML SUBCUT SCH ×4 (09:11→20:20)
[2017-06-10] MEDS ORDERED: DEXTROSE 50% 25 GM/50 ML VIAL IV PRN (09:20)
[2017-06-10] MEDS ORDERED: GLUCAGON 1 MG VIAL IM PRN (09:20)
[2017-06-10] MEDS: ERTAPENEM 1,000 MG in SODIUM CHLORIDE 0.9% 50 ML IV SCH (10:05)
[2017-06-10] MEDS: cloNIDine 0.1 MG TABLET PO SCH ×2 (10:05→20:16)
[2017-06-10] MEDS: metFORMIN 500 MG TABLET PO SCH ×2 (10:05→16:48)
[2017-06-10] MEDS: FLUCONAZOLE 200 MG TABLET PO SCH (10:05)
[2017-06-10] MEDS: GABAPENTIN 300 MG CAPSULE PO SCH ×3 (10:06→20:16)
[2017-06-10] MEDS: MORPHINE 2 MG/1 ML SYRINGE IV PRN ×2 (10:06→15:27)
[2017-06-10] MEDS: SODIUM CHLORIDE 0.9% 1,000 ML IV SCH (15:27)
[2017-06-10] MEDS: TAMSULOSIN 0.4 MG CAPSULE PO SCH (20:16)
[2017-06-10] MEDS: PARoxetine 20 MG TABLET PO SCH (20:16)
[2017-06-11] MEDS: INSULIN REGULAR 100 UNIT/ML SUBCUT SCH ×4 (08:50→21:58)
[2017-06-11] MEDS: SODIUM CHLORIDE 0.9% 1,000 ML IV SCH ×3 (09:33→22:09)
[2017-06-11] MEDS: GABAPENTIN 300 MG CAPSULE PO SCH ×3 (09:33→21:58)
[2017-06-11] MEDS: cloNIDine 0.1 MG TABLET PO SCH ×2 (09:33→21:58)
[2017-06-11] MEDS: metFORMIN 500 MG TABLET PO SCH ×2 (09:33→17:47)
[2017-06-11] MEDS: FLUCONAZOLE 200 MG TABLET PO SCH (09:33)
[2017-06-11] MEDS: MORPHINE 2 MG/1 ML SYRINGE IV PRN ×3 (09:34→22:05)
[2017-06-11] MEDS: ERTAPENEM 1,000 MG in SODIUM CHLORIDE 0.9% 50 ML IV SCH (09:34)
[2017-06-11] MEDS: TAMSULOSIN 0.4 MG CAPSULE PO SCH (21:58)
[2017-06-11] MEDS: PARoxetine 20 MG TABLET PO SCH (21:58)
[2017-06-12] MEDS: SODIUM CHLORIDE 0.9% 1,000 ML IV SCH ×2 (06:35→10:56)
[2017-06-12 07:01] LABS: Basophils % 0.5 % (0.0-0.8); Eosinophils # 0.2 10*3/uL (0.0-0.87); Eosinophils % 2.4 % (0.00-10.9); Hematocrit 40.3 VOL% (35.7-47.0); Hemoglobin 13.2 GM/DL (12.0-16.0); Immature Granulocytes % 0.6 %; Immature Granulocytes Absolute 0.05 #; Lymphocytes # 3.2 10*3/uL (1.4-4.0); Lymphocytes % 36.5 % (21.3-54.2); Mean Corpuscular HGB Conc 32.8 GM/DL (32-36); Mean Corpuscular Hemoglobin 31 PG (27-34); Mean Corpuscular Volume 95.7 FL (87-102); Mean Platelet Volume 9.4 FL (9.6-12.0); Monocytes # 0.4 10*3/uL (0.11-0.8); Monocytes % 4.4 % (1.7-12.7); Neutrophils # 4.8 10*3/uL (1.4-7.4); Neutrophils % 55.6 % (38.7-73.9); Platelet Count 310 T/CUMM (130-400); Red Blood Count 4.21 MC/CUMM (3.8-5.5); Red Cell Distribution Width 14.4 % (9.3-17.3); White Blood Count 8.7 T/CUMM (4-12)
[2017-06-12 07:37] LABS: Calcium 9.2 MG/DL (8.5-10.1)
[2017-06-12 07:38] LABS: Osmolality,Calculated 279.4 MOS/KG (273-304); Potassium 4.1 MMOL/L (3.5-5.1)
[2017-06-12] MEDS: FLUCONAZOLE 200 MG TABLET PO SCH (09:15)
[2017-06-12] MEDS: GABAPENTIN 300 MG CAPSULE PO SCH (09:15)
[2017-06-12] MEDS: ERTAPENEM 1,000 MG in SODIUM CHLORIDE 0.9% 50 ML IV SCH (09:15)
[2017-06-12] MEDS: metFORMIN 500 MG TABLET PO SCH (09:15)
[2017-06-12] MEDS: cloNIDine 0.1 MG TABLET PO SCH (09:16)
[2017-06-12] MEDS: INSULIN REGULAR 100 UNIT/ML SUBCUT SCH ×2 (09:47→11:27)
[2017-06-12 11:54] VITALS: BP 122/58
[2017-06-16 01:06] LABS: Stone Source Passed Stone
== END 2017-06-12 14:33 | disposition home or self-care (01) | DRG 660 ==
LOC: N.ADMINP 13:31 → N.2E 13:56 → EDSTATUS 06-09 11:30
PROVIDERS: ADMIT Surgery; ATTEND Surgery

== ENCOUNTER 2019-08-23 12:39 | Inpatient (IN) ==
[2019-08-23] MEDS ORDERED: SODIUM CHLORIDE 0.9% 1,000 ML IV STA (13:50)
[2019-08-23] MEDS ORDERED: PIPERACILLIN/TAZOBACTAM 3,375 MG in SODIUM CHLORIDE 0.9% 100 ML IV STA (13:50)
[2019-08-23] MEDS ORDERED: ONDANSETRON 4 MG/2 ML VIAL IV STA (13:50)
[2019-08-23] MEDS ORDERED: METOCLOPRAMIDE 10 MG/2 ML VIAL IV STA (13:50)
[2019-08-23] MEDS ORDERED: VANCOMYCIN INJ 2,000 MG in SODIUM CHLORIDE 0.9% 250 ML IV STA (13:50)
[2019-08-23 13:56] LABS: Basophils % 0.9 % (0.0-0.8); Eosinophils % 0.3 % (0.00-10.9); Hematocrit 49.6 VOL% (35.7-47.0); Hemoglobin 16.2 GM/DL (12.0-16.0); Immature Granulocytes % 0.9 %; Immature Granulocytes Absolute 0.03 #; Lymphocytes # 0.9 10*3/uL (1.4-4.0); Lymphocytes % 26.3 % (21.3-54.2); Mean Corpuscular HGB Conc 32.7 GM/DL (32-36); Mean Corpuscular Volume 96.1 FL (87-102); Mean Platelet Volume 9.3 FL (9.6-12.0); Monocytes % 0.9 % (1.7-12.7); Neutrophils % 70.7 % (38.7-73.9); Platelet Count 272 T/CUMM (130-400); Red Blood Count 5.16 MC/CUMM (3.8-5.5); Red Cell Distribution Width 14.6 % (9.3-17.3); White Blood Count 3.4 T/CUMM (4-12)
[2019-08-23 13:57] LABS: Albumin 3.6 G/DL (3.4-5.0); Bilirubin,Total 0.6 MG/DL (0.2-1.0); Calcium 9.3 MG/DL (8.5-10.1); Osmolality,Calculated 272.1 MOS/KG (273-304); Total Protein 8.2 G/DL (6.4-8.3)
[2019-08-23] MEDS ORDERED: PANTOPRAZOLE 40 MG VIAL IV STA (14:00)
[2019-08-23] MEDS ORDERED: VANCOMYCIN INJ 2,000 MG in SODIUM CHLORIDE 0.9% 500 ML IV STA (14:02)
[2019-08-23 14:12] LABS: PT Patient Result 10.6 SECS (9.6-12.2)
[2019-08-23 14:20] LABS: Amylase 47 U/L (25-115); Troponin I < 0.015 NG/ML (0.00-0.045)
[2019-08-23 14:31] LABS: Anisocytosis Slight; Band Neutrophils 10 % (0-10); Lymphocytes 28 % (20-55); Macrocytosis Slight; Nucleated Red Blood Cells 1 (0-5); Segmented Neutrophils 62 % (50-85); Total Cells Counted 100
[2019-08-23 14:32] LABS: Platelet Estimate Normal; Reactive Lymphocytes Slight
[2019-08-23 15:47] LABS: Apearance,Urine Slightly Hazy (Clear); Bilirubin,Urine Negative (Negative); Blood, Urine Large mg/dL (Negative); Glucose,Urine (UA) 50 mg/dL (Negative); Ketones,Urine 5 mg/dL (Negative); Mucus,Urine Few /LPF (Occasional); Nitrite,Urine Positive (Negative); Protein,Urine 100 MG/DL; RBC,Urine 1228 /HPF (0-4); Squamous Epithelial Cell,Urine Occasional /HPF (0-10); Urine Color Amber (Yellow); Urine Specific Gravity 1.024 (1.001-1.035); Urine Urobilinogen < 2.0 EU/DL (0.2-1.0); WBC,Urine 21 /HPF (0-6)
[2019-08-23] MEDS ORDERED: ONDANSETRON 4 MG/2 ML VIAL IV PRN (16:04)
[2019-08-23] MEDS ORDERED: PROMETHAZINE 25 MG/1 ML VIAL IM PRN (16:04)
[2019-08-23] MEDS ORDERED: SODIUM CHLORIDE 0.9% 1,000 ML IV ONE ×2 (16:21→23:26)
[2019-08-23] MEDS ORDERED: LABETALOL 20 MG/4 ML SYRINGE IV ONE (16:29)
[2019-08-23] MEDS ORDERED: ENOXAPARIN 40 MG/0.4 ML SYRINGE SUBCUT SCH (16:30)
[2019-08-23] MEDS ORDERED: INFLUENZA VIRUS VACCINE 0.5 ML SYRINGE IM ONE (17:43)
[2019-08-23] MEDS: NICOTINE 21 MG/24 HR PATCH TRANSDERM PRN (17:59)
[2019-08-23] MEDS: LACTATED RINGERS 1,000 ML IV SCH ×2 (17:59→22:46)
[2019-08-23] MEDS: MORPHINE 4 MG/1 ML VIAL IV PRN ×2 (18:00→22:43)
[2019-08-23] MEDS ORDERED: SODIUM CHLORIDE 0.9% 2,000 ML IV ONE (18:22)
[2019-08-23] MEDS: SODIUM CHLORIDE 3% 4 ML NEB RESP TX SCH (19:27)
[2019-08-23] MEDS: PANTOPRAZOLE 40 MG VIAL IV SCH (20:25)
[2019-08-23] MEDS: PIPERACILLIN/TAZOBACTAM 3,375 MG in SODIUM CHLORIDE 0.9% 100 ML IV SCH (22:45)
[2019-08-24] MEDS: VANCOMYCIN INJ 2,000 MG in SODIUM CHLORIDE 0.9% 500 ML IV SCH ×2 (03:28→16:46)
[2019-08-24] MEDS: MORPHINE 4 MG/1 ML VIAL IV PRN ×5 (03:36→21:46)
[2019-08-24 05:25] LABS: Osmolality,Calculated 279.4 MOS/KG (273-304)
[2019-08-24] MEDS: PIPERACILLIN/TAZOBACTAM 3,375 MG in SODIUM CHLORIDE 0.9% 100 ML IV SCH ×2 (06:10→16:46)
[2019-08-24] MEDS: LACTATED RINGERS 1,000 ML IV SCH ×2 (06:34→15:05)
[2019-08-24] MEDS: SODIUM CHLORIDE 3% 4 ML NEB RESP TX SCH ×3 (06:43→19:07)
[2019-08-24] MEDS: PANTOPRAZOLE 40 MG VIAL IV SCH (08:53)
[2019-08-24 08:58] LABS: Basophils % 0.3 % (0.0-0.8); Eosinophils % 0.1 % (0.00-10.9); Hematocrit 41.2 VOL% (35.7-47.0); Immature Granulocytes % 0.7 %; Lymphocytes # 0.8 10*3/uL (1.4-4.0); Lymphocytes % 5.7 % (21.3-54.2); Mean Corpuscular HGB Conc 31.6 GM/DL (32-36); Mean Corpuscular Volume 98.8 FL (87-102); Mean Platelet Volume 9.7 FL (9.6-12.0); Monocytes % 4.5 % (1.7-12.7); Neutrophils % 88.7 % (38.7-73.9); Red Blood Count 4.17 MC/CUMM (3.8-5.5); Red Cell Distribution Width 14.8 % (9.3-17.3)
[2019-08-24 09:07] LABS: Platelet Count 210 T/CUMM (130-400); White Blood Count 13.7 T/CUMM (4-12)
[2019-08-24 09:42] LABS: Band Neutrophils 11 % (0-10); Lymphocytes 9 % (20-55); Metamyelocytes 1 %; Segmented Neutrophils 77 % (50-85); Total Cells Counted 100
[2019-08-24 09:43] LABS: Hypochromasia 1+; Platelet Estimate Normal
[2019-08-24] MEDS: ALBUTEROL/IPRATROPIUM 3 ML NEB RESP TX SCH ×2 (11:10→12:57)
[2019-08-24 13:08] LABS: INR 1.2; PT Patient Result 12.7 SECS (9.6-12.2); Partial Thromboplastin Time 29.8 SECS (20.8-36.0)
[2019-08-24] MEDS ORDERED: DIAZEPAM 5 MG TABLET PO ONE ×2 (13:43→13:53)
[2019-08-24] MEDS ORDERED: GLUCAGON 1 MG VIAL IM PRN (18:53)
[2019-08-24] MEDS ORDERED: DEXTROSE 10% 250 ML BAG IV PRN (18:59)
[2019-08-25] MEDS: VANCOMYCIN INJ 2,000 MG in SODIUM CHLORIDE 0.9% 500 ML IV SCH (00:58)
[2019-08-25] MEDS: MORPHINE 4 MG/1 ML VIAL IV PRN ×4 (02:28→20:15)
[2019-08-25] MEDS: PIPERACILLIN/TAZOBACTAM 3,375 MG in SODIUM CHLORIDE 0.9% 100 ML IV SCH ×2 (03:00→09:02)
[2019-08-25] MEDS: NICOTINE 21 MG/24 HR PATCH TRANSDERM PRN (03:43)
[2019-08-25 05:44] LABS: Basophils % 0.4 % (0.0-0.8); Eosinophils # 0.3 10*3/uL (0.0-0.87); Eosinophils % 2.9 % (0.00-10.9); Hematocrit 38.1 VOL% (35.7-47.0); Hemoglobin 12.1 GM/DL (12.0-16.0); Immature Granulocytes Absolute 0.11 #; Lymphocytes # 1.4 10*3/uL (1.4-4.0); Lymphocytes % 12.5 % (21.3-54.2); Mean Corpuscular HGB Conc 31.8 GM/DL (32-36); Mean Corpuscular Volume 95.7 FL (87-102); Mean Platelet Volume 10.1 FL (9.6-12.0); Monocytes % 5.2 % (1.7-12.7); Platelet Count 169 T/CUMM (130-400); Red Blood Count 3.98 MC/CUMM (3.8-5.5); Red Cell Distribution Width 14.4 % (9.3-17.3); White Blood Count 11.1 T/CUMM (4-12)
[2019-08-25 05:46] LABS: Calcium 8.5 MG/DL (8.5-10.1); Osmolality,Calculated 277.5 MOS/KG (273-304)
[2019-08-25 07:04] LABS: Band Neutrophils 7 % (0-10); Eosinophils 3 % (0-10); Lymphocytes 9 % (20-55); Segmented Neutrophils 77 % (50-85); Total Cells Counted 100
[2019-08-25 07:05] LABS: Hypochromasia 1+; Macrocytosis Slight; Platelet Estimate Adequate
[2019-08-25] MEDS: SODIUM CHLORIDE 3% 4 ML NEB RESP TX SCH ×3 (07:35→19:01)
[2019-08-25] MEDS: PANTOPRAZOLE 40 MG TABLET PO SCH (09:00)
[2019-08-25] MEDS: ursodioL 300 MG CAPSULE PO SCH ×2 (11:51→20:19)
[2019-08-25] MEDS: LACTATED RINGERS 1,000 ML IV SCH ×3 (11:51→23:18)
[2019-08-25] MEDS: MEROPENEM 500 MG in SODIUM CHLORIDE 0.9% 100 ML IV SCH ×3 (11:51→22:35)
[2019-08-25] MEDS: POTASSIUM CHLORIDE 20 MEQ TABLET PO PRN ×4 (14:10→20:19)
[2019-08-26] MEDS: MEROPENEM 500 MG in SODIUM CHLORIDE 0.9% 100 ML IV SCH ×3 (05:05→15:14)
[2019-08-26 05:06] LABS: Basophils % 0.3 % (0.0-0.8); Eosinophils # 0.4 10*3/uL (0.0-0.87); Eosinophils % 4.2 % (0.00-10.9); Hemoglobin 12.3 GM/DL (12.0-16.0); Immature Granulocytes % 1.2 %; Immature Granulocytes Absolute 0.12 #; Lymphocytes # 2.1 10*3/uL (1.4-4.0); Lymphocytes % 20.7 % (21.3-54.2); Mean Corpuscular HGB Conc 32.4 GM/DL (32-36); Mean Corpuscular Volume 95.2 FL (87-102); Mean Platelet Volume 10.1 FL (9.6-12.0); Monocytes % 5.3 % (1.7-12.7); Neutrophils % 68.3 % (38.7-73.9); Platelet Count 179 T/CUMM (130-400); Red Blood Count 3.99 MC/CUMM (3.8-5.5); Red Cell Distribution Width 14.2 % (9.3-17.3); White Blood Count 10.3 T/CUMM (4-12)
[2019-08-26] MEDS: ACETAMINOPHEN 325 MG TABLET PO PRN ×2 (05:06→15:12)
[2019-08-26] MEDS: LACTATED RINGERS 1,000 ML IV SCH (05:57)
[2019-08-26 07:04] LABS: Calcium 8.5 MG/DL (8.5-10.1); Osmolality,Calculated 276.7 MOS/KG (273-304)
[2019-08-26] MEDS: SODIUM CHLORIDE 3% 4 ML NEB RESP TX SCH ×2 (07:17→14:58)
[2019-08-26] MEDS: PANTOPRAZOLE 40 MG TABLET PO SCH (09:40)
[2019-08-26] MEDS: ursodioL 300 MG CAPSULE PO SCH (09:41)
[2019-08-26 11:47] VITALS: BP 119/68
== END 2019-08-26 16:30 | disposition home health service (06) | DRG 720 ==
LOC: N.ED 12:39 → SUATTDRO 16:06 → N.EDINP 16:06 → N.2E 16:53
PROVIDERS: ADMIT Internal Medicine; ATTEND Internal Medicine